=== PATIENT | male | born 1995 | race Caucasian/White ===

== ENCOUNTER 2025-08-18 10:32 | Emergency (ER) | payer OTHER | END 2025-08-18 12:53 | disposition home or self-care (01) | LOC: ERS 10:32 | DX: H60.501 Unspecified acute noninfective otitis externa, right ear (principal); H73.91 Unspecified disorder of tympanic membrane, right ear; F17.210 Nicotine dependence, cigarettes, uncomplicated | CPT/HCPCS: 99282 ==